=== PATIENT | male | born 1960 | race Caucasian/White ===

== ENCOUNTER 2019-08-27 12:28 | Inpatient (IN) | payer BC, OTHER ==
[2019-08-27 12:47] LABS: ABSOLUTE BASOPHILS # (AUTO) 0.1 10^3/uL (0.0-0.2); ABSOLUTE EOSINOPHILS # (AUTO) 0.4 10^3/uL (0.0-0.6); ABSOLUTE LYMPHOCYTES (AUTO) 2.9 10^3/uL (0.5-4.7); ABSOLUTE NEUT (AUTO) 6.8 10^3/uL (1.7-8.2); BASOPHILS % (AUTO) 0.9 % (0-2); EOSINOPHILS % (AUTO) 3.9 % (0-6); HEMATOCRIT 53.8 % (37.9-51.0); HEMOGLOBIN 17.9 g/dL (13.5-17.0); LYMPHOCYTES % (AUTO) 25.6 % (13-45); MEAN CORPUSCULAR HEMOGLOBIN 32.2 pg (27.0-33.4); MEAN CORPUSCULAR HGB CONC 33.3 g/dL (32.0-36.0); MEAN CORPUSCULAR VOLUME 97 fl (80-97); MONOCYTES % (AUTO) 9.1 % (3-13); PLATELET COUNT 197 10^3/uL (150-450); RED BLOOD COUNT 5.56 10^6/uL (4.35-5.55); RED CELL DISTRIBUTION WIDTH 14.9 % (11.5-14.0); SEGMENTED NEUTROPHILS % (AUTO) 60.5 % (42-78); TOTAL CELLS COUNTED % (AUTO) 100 %; WHITE BLOOD COUNT 11.2 10^3/uL (4.0-10.5)
[2019-08-27 13:07] LABS: ALBUMIN 4.4 g/dL (3.5-5.0); ALKALINE PHOSPHATASE 62 U/L (38-126); ANION GAP 10 (5-19); ASPARTATE AMINO TRANSFERASE 30 U/L (17-59); BILIRUBIN,DIRECT 0.1 mg/dL (0.0-0.4); BILIRUBIN,TOTAL 0.4 mg/dL (0.2-1.3); BLOOD UREA NITROGEN 22 mg/dL (7-20); CALCIUM 9.2 mg/dL (8.4-10.2); CARBON DIOXIDE 28 mmol/L (22-30); CHLORIDE 103 mmol/L (98-107); CREATINE KINASE 173 U/L (55-170); GLUCOSE 103 mg/dL (75-110); POTASSIUM 4.8 mmol/L (3.6-5.0)
--- NOTE | 2019-08-27 13:21 | RADIOLOGY REPORT (SQ) ---
EXAM DESCRIPTION: CHEST 2 VIEWS COMPLETED DATE/TIME: 08/27/2019 1:08 pm REASON FOR STUDY: SOB COMPARISON: None. EXAM PARAMETERS: NUMBER OF VIEWS: two views TECHNIQUE: Digital Frontal and Lateral radiographic views of the chest acquired. RADIATION DOSE: NA LIMITATIONS: none FINDINGS: LUNGS AND PLEURA: No opacities, masses or pneumothorax. No pleural effusion. MEDIASTINUM AND HILAR STRUCTURES: No masses or contour abnormalities. HEART AND VASCULAR STRUCTURES: Heart normal size. No evidence for failure. BONES: Old healed left lateral 5th rib fracture HARDWARE: None in the chest. OTHER: No other significant finding. IMPRESSION: NO ACUTE RADIOGRAPHIC FINDING IN THE CHEST. TECHNICAL DOCUMENTATION: JOB ID: [id number] [employer]- All Rights Reserved Reading location - IP/workstation name: [id number]
[2019-08-27] MEDS ORDERED: ALBUTEROL SULFATE 0.083% NEB 2.5 MG/3 ML AMPUL NEB ONE ×2 (14:01→14:10)
[2019-08-27] MEDS ORDERED: IPRATROPIUM/ALBUTEROL 0.5-2.5 MG/3 ML AMPUL NEB ONE ×2 (14:01→14:10)
--- NOTE | 2019-08-27 14:12 | ER Document Report ---
ED General - General Chief Complaint: Respiratory Distress Stated Complaint: BREATHING DIFFICULTY Time Seen by Provider: 08/27/19 13:12 Primary Care Provider: DARIAN DOMINGUEZ PA [Primary Care Provider] - Follow up as needed Notes: 59-year-old male presents emergency department stating that he was diagnosed with COPD/bronchitis approximately 1 month ago but he has been feeling progressively worse since then. Patient admits increasing cough that is productive but states that the mucus production has decreased, it is clear and brown. States that he has had to sleep sitting up, denies any fevers but admits sweats. States he started taking his 's cough medication in the form of codeine to decrease his cough a few days ago. He has been using 2 different inhalers, one which is a LABA combination inhaler and the other of which is albuterol, he is not certain if either of them are helping. Patient was previ ously on a steroid several weeks ago but has not taken it recently. 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 TRAVEL OUTSIDE OF THE [place] IN LAST 30 DAYS: No - Related Data Allergies/Adverse Reactions: No Known Allergies Allergy (Unverified 08/27/19 12:50) Home Medications: virtussin 5-10ml q4-6h. benicar 40mg qd. albuterol. stiolto Past Medical History - General Information source: Patient - Social History Smoking Status: Current Every Day Smoker Frequency of alcohol use: None Drug Abuse: Marijuana Family History: Reviewed & Not Pertinent Patient has suicidal ideation: No Patient has homicidal ideation: No Review of Systems - Review of Systems Constitutional: See HPI, Chills. denies: Fever EENT: No symptoms reported Cardiovascular: No symptoms reported Respiratory: See HPI -: Yes All other systems reviewed and negative Physical Exam - Vital signs Vitals: Resp BP Pulse Ox 31 H 187/103 H 93 08/27/19 12:32 08/27/19 12:32 08/27/19 12:32 Interpretation: Hypertensive, Tachypneic - Notes Notes: GENERAL: Alert, interacts well. No acute distress. HEAD: Normocephalic, atraumatic EYES: Pupils equal, round and reactive to light, extraocular movements intact. ENT: Oral mucosa moist, tongue midline. NECK: Full range of motion, supple, trachea midline. LUNGS: Diffuse expiratory wheezing, becomes quite red in the face while coughing and appears short of breath, on 2 L via nasal cannula and his oxygen saturation is 93% while sitting. Tachypnea, using some accessory muscles of respiration. HEART: Tachycardic rate and regular rhythm, no murmurs, gallops, rubs. ABDOMEN: Soft, nontender, nondistended, bowel sounds present in all 4 quadrants. EXTREMITIES: Moves all 4 extremities spontaneously, no edema, radial and dorsalis pedis pulses 2/4 bilaterally. No cyanosis. NEUROLOGICAL: Alert and oriented x3, normal speech, biceps and patellar DTRs 2+ bilaterally. PSYCH: Normal mood, normal affect. SKIN: Warm, Dry, normal turgor, no rashes or lesions noted. Course - Re-evaluation Re-evalutation: 08/27/19 14:46 CBC looks like is probably hemoconcentrated, white blood cell count is slightly elevated 11.2, hemoglobin is elevated 17.9, platelets normal, no shift, CMP shows elevated BUN at 22, elevated CK at 173, otherwise unremarkable, troponin negative, chest x-ray shows no acute process, EKG is nonischemic. Patient was given 5 mg of albuterol and 1 DuoNeb breathing treatment, patient continues to wheeze just with as badly as before, EMS already gave him 1 albuterol breathing treatment and also gave him 125 mg of Solu-Medrol. Patient remains on 1 L of oxygen via nasal cannula here as when EMS came to his house he was 87 to 88% on room air. Patient appears to be having an acute exacerbation of COPD. I will discuss him with the hospitalist for possible admission. 08/27/19 14:[address] Blunt who accepted him for admission to the [facility]. - Vital Signs Vital signs: Temp Pulse Resp BP Pulse Ox 98 F 24 H 156/97 H 94 08/27/19 12:42 08/27/19 14:01 08/27/19 14:01 08/27/19 14:01 - Laboratory Result Diagrams: 08/27/19 12:31 08/27/19 12:31 Laboratory results interpreted by me: 08/27/19 08/27/19 12:31 12:31 WBC 11.2 H RBC 5.56 H Hgb 17.9 H Hct 53.8 H RDW 14.9 H BUN 22 H Creatine Kinase 173 H - EKG Interpretation by Me Additional EKG results interpreted by me: 08/27/19 14:47 EKG shows sinus tachycardia at a rate of 121, normal axis, normal intervals, no ST segment elevations or depressions, there is of rapid R wave progression, no T wave inversions per my interpretation. Discharge - Discharge Clinical Impression: Chronic obstructive pulmonary disease with (acute) exacerbation Condition: Fair Disposition: ADMITTED INPATIENT Admitting Provider: Jose Raul (Hospitalist) Unit Admitted: IMCU Referrals: DARIAN DOMINGUEZ PA [Primary Care Provider] - Follow up as needed
[2019-08-27] MEDS ORDERED: MAGNESIUM HYDROXIDE SUSP 30 ML UDCUP PO PRN (17:11)
[2019-08-27] MEDS ORDERED: LEVALBUTEROL HCL NEB 1.25 MG/3 ML AMPUL NEB PRN (17:11)
[2019-08-27] MEDS ORDERED: ONDANSETRON 4 MG TAB.RAPDIS PO PRN (17:11)
[2019-08-27] MEDS ORDERED: MAG HYDROX/AL HYDROX/SIMETH SUSP 30 ML UDCUP PO PRN (17:11)
[2019-08-27] MEDS ORDERED: ACETAMINOPHEN 325 MG TABLET PO PRN (17:11)
[2019-08-27] MEDS ORDERED: IPRATROPIUM BROMIDE 0.02% NEB 0.5 MG/2.5 ML AMPUL NEB PRN (17:25)
[2019-08-27] MEDS ORDERED: GUAIFENESIN/CODEINE PHOS 100-10 MG/ 5 ML UDC PO PRN (17:40)
[2019-08-27] MEDS ORDERED: PHARMACY COMMUNICATION ORDER MC NR (18:00)
[2019-08-27] MEDS ORDERED: NICOTINE 14 MG/24 HR PATCH.TD24 TD PRN (18:04)
--- NOTE | 2019-08-27 18:14 | PDOC H&P ---
History of Present Illness Admission Date/PCP: 08/27/19 15:01 TASAH SORIA Patient complains of: Shortness of breath History of Present Illness: DHAVAL MORRISON is a 59 year old male who states that he has been coughing for several weeks. He states that he occasionally brings up clear or brown sputum. He denies fever or chills. He states that he does get hot on occasion and his friends joked that he is going through mail menopause. He said that it is brie f. He feels hot and there is some diaphoresis but it resolves quickly. He has noticed that he has been getting more short of breath. 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 He does not use oxygen at home. He was getting so short of breath that he finally called EMS. At the scene his oxygen saturation on room air was in the 80s. He was quite wheezy. He was given 125 mg of Solu- Medrol IV as well as nebulizer treatment. He was placed on oxygen. His chest x-ray is negative. There is some confusion about TB exposure. The patient states that his promotions assistant told him that there was a particular test that shows that he has been exposed to TB. He was started on a medication. He cannot quite remember the name but he thinks it began with an R. This could be rifampin. He then went to his primary care provider who said he did not need medicine. He followed up with the pulmonary doctor, I believe, and was told to go back on the medicine. His primary care provider again told him to go off the medicine and that a B complex would be as effective. I am going to request old records. In addition he was seeing a oracle fusion middleware developer. He did get a CT of his chest several weeks ago in [place]. He was at [place] because he had a syncopal episode while coughing. On presentation to the emergency department he was extremely wheezy. He exhibited significant increased work of breathing. His oxygen supplementation was continued. Chest x-ray did not show any infiltrates. There was nothing on the x-ray to suggest a mycobacterial lesion. Regardless, he will be in a negative pressure room. He does not have an elevated white blood cell count. He does have polycythemia and this is likely secondary to smoking. He was a 2 pack-a-day smoker but now has not had a cigarette for 4 days. The patient was referred to the hospitalist service for acute on chronic respiratory failure with hypoxia as well as acute exacerbation of COPD with bronchitis. Past Medical History Cardiac Medical History: Denies: Congestive Heart Failure, Coronary Artery Disease Pulmonary Medical History: Reports: Bronchitis, Chronic Obstructive Pulmonary D isease (COPD) EENT Medical History: Reports: Nose - Possible chronic sinusitis Neurological Medical History: Denies: Hemorrhagic CVA, Ischemic CVA Endocrine Medical History: Denies: Diabetes Mellitus Type 2 Renal/ Medical History: Denies: Chronic Kidney Disease, Nephrolithiasis Malignancy Medical History: Reports: None GI Medical History: Denies: Cirrhosis, Diverticulitis, Gastroesophageal Reflux Disease, Hiatal Hernia Musculoskeltal Medical History: Reports: Arthritis - Currently seeing a promotions assistant. Unsure of the exact type of arthritis. Skin Medical History: Reports: None Psychiatric Medical History: Reports: Alcohol Dependency, Substance Abuse, Tob acco Dependency Traumatic Medical History: Reports: None Hematology: Reports: None Infectious Medical History: Reports: Other Infectious History Note: Cat scratch fever Past Surgical History Past Surgical History: Reports: Other - Right neck lymph node biopsies Social History Information Source: Patient Lives with: Spouse/Significant other Smoking Status: Former Smoker - Patient was smoking 2 packs/day. 4 days ago he quit cold turkey. Cigarettes Packs Per Day: 2 Electronic Cigarette use?: No Frequency of Alcohol Use: None - History of alcoholism Hx Recreational Drug Use: Yes Drugs: Marijuana - Occasional use Hx Prescription Drug Abuse: No Past Social History Note: Lives with girlfriend. 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 He has 2 sons. - Advance Directive Resuscitation Status: Full Code Family History Family History: CAD, Malignancy Parental Family History Reviewed: Yes Children Family History Reviewed: Yes Sibling(s) Family History Reviewed.: Yes Medication/Allergy Home Medications: Albuterol Sulfate [Proair Hfa Inhalation Aerosol 8.5 gm Mdi] 200 puff IH DAILYP PRN 08/27/19 Codeine Phosphate/Guaifenesin [Virtussin AC Liquid] 5 - 10 ml PO Q4HP PRN 08/27/19 Olmesartan Medoxomil [Benicar] 40 mg PO DAILY 08/27/19 Tiotropium Br/Olodaterol HCl [Stiolto Respimat Inhal [place]] 8 gm IH QAM 08/27/19 Allergies/Adverse Reactions: No Known Allergies Allergy (Unverified 08/27/19 12:50) Review of Systems Constitutional: PRESENT: as per HPI, weight gain - In the past he cut out all carbs and starches. He states that he lost approximately 17 pounds. He had an episode where he collapsed. People blamed it on his diet. He stopped dieting and he has gained back all of the weight. He is also intermittently on prednisone.. ABSENT: chills, fever(s), night sweats Eyes: ABSENT: visual disturbances Ears: ABSENT: hearing changes Nose, Mouth, and Throat: PRESENT: other. ABSENT: headache(s) - Cough, mouth pain Cardiovascular: PRESENT: dyspnea on exertion. ABSENT: chest pain, palpitations Respiratory: PRESENT: cough, dyspnea, sputum - Clear to brown Gastrointestinal: ABSENT: abdominal pain, coffee ground emesis, constipation, diarrhea, heartburn, nausea, vomiting Genitourinary: ABSENT: difficulty urinating, dysuria, hematuria Musculoskeletal: PRESENT: other - He reports sporadic severe cramping Integumentary: ABSENT: erythema, lesions, pruritus, rash Neurological: ABSENT: abnormal movements, abnormal speech, confusion, memory loss, tremor(s), vertigo Psychiatric: ABSENT: anxiety, depression, hallucinations Endocrine: ABSENT: cold intolerance, heat intolerance, polydipsia, polyphagia Hematologic/Lymphatic: ABSENT: easy bleeding, easy bruising, lymphadenopathy Physical Exam Vital Signs: Temp Pulse Resp BP Pulse Ox 98 F 30 H 161/81 H 93 08/27/19 12:42 08/27/19 17:01 08/27/19 17:01 08/27/19 17:01 Intake & Output 08/26/19 08/27/19 08/28/19 06:59 06:59 06:59 Weight 104.326 kg General appearance: PRESENT: cooperative, well-developed, other - 59-year-old patient resting in bed with nasal cannula in place. He is tachypneic with moderate distress. Head exam: PRESENT: atraumatic, normocephalic Eye exam: PRESENT: conjunctiva pink, EOMI. ABSENT: scleral icterus Ear exam: PRESENT: normal external ear exam. ABSENT: bleeding, drainage Mouth exam: PRESENT: dry mucosa, tongue midline Neck exam: PRESENT: full ROM. ABSENT: carotid bruit, lymphadenopathy, tracheostomy Respiratory exam: PRESENT: prolonged expiratory phas, symmetrical, tachypnea, wheezes - Scattered inspiratory and expiratory wheezes bilaterally. ABSENT: accessory muscle use, rales, rhonchi Cardiovascular exam: PRESENT: +S1, +S2, tachycardia Pulses: PRESENT: normal radial pulses, normal dorsalis pedis pul GI/Abdominal exam: PRESENT: distended - Protuberant abdomen, firm, normal bowel sounds. ABSENT: ascites, guarding, rebound, tenderness Rectal exam: PRESENT: deferred Gentrourinary exam: ABSENT: indwelling catheter Extremities exam: PRESENT: full ROM, +1 edema - Lower extremities Musculoskeletal exam: PRESENT: ambulatory, full ROM. ABSENT: deformity Neurological exam: PRESENT: alert, awake, oriented to person, oriented to place, oriented to time, oriented to situation, CN II-XII grossly intact Psychiatric exam: PRESENT: anxious, appropriate affect. ABSENT: agitated Focused psych exam: ABSENT: delusional, restlessness Skin exam: PRESENT: dry, normal color, warm. ABSENT: rash, vesicles Results Laboratory Results: 08/27/19 12:31 08/27/19 12:31 08/27/19 08/27/19 12:31 12:31 WBC 11.2 H RBC 5.56 H Hgb 17.9 H Hct 53.8 H MCV 97 MCH 32.2 MCHC 33.3 RDW 14.9 H Plt Count 197 Seg Neutrophils % 60.5 Sodium 140.8 Potassium 4.8 Chloride 103 Carbon Dioxide 28 Anion Gap 10 BUN 22 H Creatinine 0.93 Est GFR ( Amer) > 60 Glucose 103 Calcium 9.2 Total Bilirubin 0.4 AST 30 Alkaline Phosphatase 62 Total Protein 8.0 Albumin 4.4 08/27/19 08/27/19 12:31 12:31 Creatine Kinase 173 H Troponin I < 0.012 Impressions: Chest X-Ray 08/27/19 12:34 IMPRESSION: NO ACUTE RADIOGRAPHIC FINDING IN THE CHEST. Assessment and Plan - Diagnosis (1) Acute and chronic respiratory failure with hypoxia Is this a current diagnosis for this admission?: Yes Plan: 08/27/2019-respiratory failure secondary to COPD exacerbation with bronchitis. The patient was recently diagnosed with COPD with bronchitis. Over the last sev eral weeks he has been experiencing a productive cough and worsening shortness of breath. Today he could hardly breathe and called rescue. In the field he had low oxygen saturation requiring oxygen supplementation. He had increased work of breathing. He received IV steroids and nebulizer treatment in the field and nebulizer treatments in the emergency department. We will continue to supplement his oxygen and start him on an aggressive regimen of nebulizers and steroids. (2) Chronic obstructive pulmonary disease with (acute) exacerbation Is this a current diagnosis for this admission?: Yes Plan: 08/27/2019-the patient is on an inhaler at home. He reports that his doctor will have him take prednisone on occasion. He has been on it recently. I have ordered scheduled and as needed nebulizers with Xopenex and ipratropium as well as scheduled Pulmicort inhalers. He will also receive IV steroids and I placed him on a azithromycin for bronchitis with COPD. (3) Sinus tachycardia Is this a current diagnosis for this admission?: Yes Plan: The patient is quite tachycardic. Some of this I believe is due to nebulizers. I will use Xopenex to decrease beta agonist effect. In addition I will try and avoid beta blockers as they could worsen his shortness of breath. I have elected to start low-dose diltiazem and monitor the patient on telemetry. (4) Hypertension Qualifiers: Hypertension type: essential hypertension Qualified Code(s): I10 - Essential (primary) hypertension Is this a current diagnosis for this admission?: Yes Plan: 08/27/2019-the patient is normally on 40 mg of Benicar. This is the maximum dose. I will therefore put him on 100 mg of losartan and monitor his blood pressure. The patient also states that he has been put on cholesterol medicine but he does not take it. Because this admission is specifically for an exacerbation of COPD I will defer to the primary care provider regarding statin therapy. If isolated systolic pressure continues I will add diuretic therapy. (5) Polycythemia secondary to smoking Is this a current diagnosis for this admission?: Yes Plan: 08/27/2019-the patient was a 2 pack-a-day smoker up until the last few weeks. He weaned himself down and has not had a cigarette for the last 4 days. We will monitor his hemoglobin and hematocrit. He does not need phlebotomy at this point. That will always be an option. (6) Weight gain Is this a current diagnosis for this admission?: Yes Plan: 08/27/2019-the patient states that he has been weight. It is likely due to the prednisone as well as completely going off his diet. Instead of moderating the carbs and starches he went back to full consumption. We reviewed the health ri sks and I strongly encouraged moderate dieting for long-term weight loss. I will check thyroid function studies. (7) Localized edema Is this a current diagnosis for this admission?: Yes Plan: The patient has 1+ pitting edema in his lower extremities. Because his BUN is slightly elevated I will give him IV fluids. If his edema gets worse and his blood pressure can tolerate it I will add diuretic therapy. (8) Muscle cramps Is this a current diagnosis for this admission?: Yes Plan: 08/27/2019-the patient reports that he has been having muscle cramps. Sometimes they are severe. On first review there are no electrolyte abnormalities. We will monitor the patient closely. If his cramping continues this will merit further work-up. - Plan Summary Summary: 08/27/2019-there is question about TB exposure. His brought his medications at home. I am going to request records from his promotions assistant (who told him he needed to be on medication for possible TB exposure) as well as the hospital records from [place] as he was seen in the emergency department several weeks ago. He will stay in negative pressure isolation. I have ordered a QuantiFERON gold study as well as a PPD and sputum for culture and AFB. If pulmonology is available tomorrow I will obtain a consult. - Time Time Spent with patient: 35 or more minutes Smoking Cessation Education: 3 to 10 minutes Medications reviewed and adjusted accordingly: Yes Anticipated discharge: Home - Inpatient Certification Based on my medical assessment, after consideration of the patient's comorbidities, presenting symptoms, or acuity I expect that the services needed warrant INPATIENT care.: Yes I certify that my determination is in accordance with my understanding of Medicare's requirements for reasonable and necessary INPATIENT services [42 CFR 412.3e].: Yes Medical Necessity: Failure to Improve With Outpatient Therapy, Need For IV Fluids, Need For Continuous Telemetry Monitoring, Need for Nebulizer Therapy and Monitoring of Response, Need for IV Antibiotics, Risk of Diagnosis Which Will Require Inpatient Eval/Care/Monitoring Post Hospital Care: D/C [employer]s And Shoes Supervisor Documentation
[2019-08-27] MEDS ORDERED: IBUPROFEN 400 MG TABLET PO PRN (18:21)
[2019-08-27] MEDS ORDERED: TUBERCULIN,PURIF.PROT.DERIV. 5 TU/0.1 ML TEST 1 ML VIAL ID ONE ×2 (19:00→19:31)
[2019-08-27] MEDS: DOCUSATE SODIUM 100 MG CAPSULE PO SCH (19:06)
[2019-08-27] MEDS: DILTIAZEM HCL 30 MG TABLET PO SCH ×2 (19:06→23:41)
[2019-08-27] MEDS: IPRATROPIUM BROMIDE 0.02% NEB 0.5 MG/2.5 ML AMPUL NEB SCH (20:30)
[2019-08-27] MEDS: LEVALBUTEROL HCL NEB 1.25 MG/3 ML AMPUL NEB SCH (20:30)
[2019-08-27] MEDS: GUAIFENESIN 600 MG TABLET.SA PO SCH (21:24)
[2019-08-27] MEDS: METHYLPREDNISOLONE INJ 40 MG/1 ML SDV IV SCH (21:24)
[2019-08-27] MEDS: NORMAL SALINE 1000 ML 1,000 ML IV PRN (22:00)
[2019-08-27] MEDS ORDERED: IBUPROFEN 400 MG TABLET ONE (23:30)
--- NOTE | 2019-08-27 23:35 | EKG REPORT ---
SEVERITY:- OTHERWISE NORMAL ECG - SINUS TACHYCARDIA : Confirmed by: Serene Jimenes 27-Aug-2019 23:34:27
[2019-08-28] MEDS: IPRATROPIUM BROMIDE 0.02% NEB 0.5 MG/2.5 ML AMPUL NEB SCH ×4 (02:34→21:12)
[2019-08-28] MEDS: LEVALBUTEROL HCL NEB 1.25 MG/3 ML AMPUL NEB SCH ×4 (02:41→21:13)
[2019-08-28] MEDS: PANTOPRAZOLE SODIUM 40 MG TABLET.DR PO SCH (05:30)
[2019-08-28] MEDS: METHYLPREDNISOLONE INJ 40 MG/1 ML SDV IV SCH ×3 (05:30→21:02)
[2019-08-28] MEDS: DILTIAZEM HCL 30 MG TABLET PO SCH ×3 (05:31→17:39)
[2019-08-28 06:28] LABS: ABSOLUTE BASOPHILS # (AUTO) 0.1 10^3/uL (0.0-0.2); ABSOLUTE LYMPHOCYTES (AUTO) 1.5 10^3/uL (0.5-4.7); ABSOLUTE MONOCYTES (AUTO) 0.6 10^3/uL (0.1-1.4); ABSOLUTE NEUT (AUTO) 10.4 10^3/uL (1.7-8.2); BASOPHILS % (AUTO) 0.4 % (0-2); EOSINOPHILS % (AUTO) 0.1 % (0-6); HEMATOCRIT 47.7 % (37.9-51.0); HEMOGLOBIN 16.1 g/dL (13.5-17.0); LYMPHOCYTES % (AUTO) 11.9 % (13-45); MEAN CORPUSCULAR HEMOGLOBIN 32.7 pg (27.0-33.4); MEAN CORPUSCULAR HGB CONC 33.8 g/dL (32.0-36.0); MEAN CORPUSCULAR VOLUME 97 fl (80-97); MONOCYTES % (AUTO) 4.9 % (3-13); PLATELET COUNT 191 10^3/uL (150-450); RED BLOOD COUNT 4.93 10^6/uL (4.35-5.55); RED CELL DISTRIBUTION WIDTH 14.7 % (11.5-14.0); SEGMENTED NEUTROPHILS % (AUTO) 82.7 % (42-78); TOTAL CELLS COUNTED % (AUTO) 100 %; WHITE BLOOD COUNT 12.6 10^3/uL (4.0-10.5)
[2019-08-28 06:41] LABS: ANION GAP 8 (5-19); BLOOD UREA NITROGEN 22 mg/dL (7-20); CALCIUM 8.8 mg/dL (8.4-10.2); CARBON DIOXIDE 28 mmol/L (22-30); CHLORIDE 101 mmol/L (98-107); GLUCOSE 141 mg/dL (75-110); PHOSPHORUS 3.3 mg/dL (2.5-4.5); POTASSIUM 4.8 mmol/L (3.6-5.0)
[2019-08-28 06:57] LABS: ARTERIAL BLOOD BASE EXCESS -0.2 mmol/L; ARTERIAL BLOOD H2CO3 1.27 mmol/L (1.05-1.35); ARTERIAL BLOOD HCO3 24.9 mmol/L (20-24); ARTERIAL BLOOD O2 SATURATION 93.1 % (94-98); ARTERIAL BLOOD PCO2 42.1 mmHg (35-45); ARTERIAL BLOOD PH 7.39 (7.35-7.45); ARTERIAL BLOOD PO2 66.7 mmHg (80-100); ARTERIAL BLOOD TOTAL CO2 26.2 mmol/L (23-27)
[2019-08-28 07:00] LABS: FREE T3 3.6 pg/mL (2.77-5.27); FREE T4 (FREE THYROXINE) 0.79 ng/dL (0.78-2.19)
[2019-08-28 07:14] LABS: THYROID STIMULATING HORMONE 0.33 uIU/mL (0.47-4.68)
[2019-08-28 07:47] LABS: ARTERIAL BLOOD FIO2 2 L
[2019-08-28] MEDS: NORMAL SALINE 1000 ML 1,000 ML IV PRN (09:00)
[2019-08-28] MEDS ORDERED: AZITHROMYCIN 500 MG in DEXTROSE 5%-WATER 250 ML IV SCH (10:00)
[2019-08-28] MEDS: LOSARTAN POTASSIUM 50 MG TABLET PO SCH (10:48)
[2019-08-28] MEDS: GUAIFENESIN 600 MG TABLET.SA PO SCH ×2 (10:48→21:02)
[2019-08-28] MEDS: DOCUSATE SODIUM 100 MG CAPSULE PO SCH ×2 (10:48→17:35)
[2019-08-28] MEDS: MULTIVITAMIN TABLET PO SCH (10:49)
[2019-08-28] MEDS: ENOXAPARIN SODIUM INJ 40 MG/0.4 ML DISP.SYRIN SUBCUT SCH (10:49)
--- NOTE | 2019-08-28 15:42 | PDOC PROGRESS REPORT ---
Subjective Progress Note for:: 08/28/19 Subjective:: Still with very bad cough. The patient reports that he has been exposed to MRSA as well. Records have been sent from previous facilities and I will review. Reason For Visit: CHRONIC OBSTRUCTIVE PULMONARY DISEASE WITH ACUTE Physical Exam Vital Signs: Temp Pulse Resp BP Pulse Ox 97.8 F 113 H 18 137/55 H 95 08/28/19 12:03 08/28/19 14:00 08/28/19 13:49 08/28/19 12:03 08/28/19 13:49 Intake & Output 08/27/19 08/28/19 08/29/19 06:59 06:59 06:59 Intake Total 2200 730 Output Total 0 Balance 2200 730 Weight 104.4 kg General appearance: PRESENT: cooperative, mild distress - Patient is in mild to moderate distress with coughing fits., well-developed Head exam: PRESENT: atraumatic, normocephalic Eye exam: PRESENT: conjunctival injection Ear exam: PRESENT: normal external ear exam. ABSENT: bleeding, drainage Respiratory exam: PRESENT: prolonged expiratory phas, tachypnea, wheezes - Wheezes bilaterally, other - Coughing fits Cardiovascular exam: PRESENT: RRR, +S1, +S2, tachycardia GI/Abdominal exam: PRESENT: normal bowel sounds, soft. ABSENT: tenderness Rectal exam: PRESENT: deferred Gentrourinary exam: ABSENT: indwelling catheter Extremities exam: ABSENT: joint swelling, pedal edema Musculoskeletal exam: PRESENT: normal inspection. ABSENT: deformity Neurological exam: PRESENT: alert, awake, oriented to person, oriented to place, oriented to time, oriented to situation, CN II-XII grossly intact Psychiatric exam: PRESENT: appropriate affect. ABSENT: agitated, anxious Focused psych exam: ABSENT: delusional, restlessness Results Laboratory Results: 08/28/19 05:26 08/28/19 05:26 08/28/19 08/28/19 08/28/19 05:26 05:26 05:26 WBC 12.6 H RBC 4.93 Hgb 16.1 Hct 47.7 MCV 97 MCH 32.7 MCHC 33.8 RDW 14.7 H Plt Count 191 Seg Neutrophils % 82.7 H Carbonic Acid HCO3/H2CO3 Ratio ABG pH ABG pCO2 ABG pO2 ABG HCO3 ABG O2 Saturation ABG Base Excess FiO2 Sodium 136.7 L Potassium 4.8 Chloride 101 Carbon Dioxide 28 Anion Gap 8 BUN 22 H Creatinine 0.91 Est GFR ( Amer) > 60 Glucose 141 H Calcium 8.8 Phosphorus 3.3 Magnesium 2.2 TSH 0.33 L Free T4 0.79 Free T3 pg/mL 3.60 08/28/19 06:41 WBC RBC Hgb Hct MCV MCH MCHC RDW Plt Count Seg Neutrophils % Carbonic Acid 1.27 HCO3/H2CO3 Ratio 19:1 ABG pH 7.39 ABG pCO2 42.1 ABG pO2 66.7 L ABG HCO3 24.9 H ABG O2 Saturation 93.1 L ABG Base Excess -0.2 FiO2 2 L Sodium Potassium Chloride Carbon Dioxide Anion Gap BUN Creatinine Est GFR ( Amer) Glucose Calcium Phosphorus Magnesium TSH Free T4 Free T3 pg/mL 08/27/19 08/27/19 12:31 12:31 Creatine Kinase 173 H Troponin I < 0.012 Impressions: Chest X-Ray 08/27/19 12:34 IMPRESSION: NO ACUTE RADIOGRAPHIC FINDING IN THE CHEST. Assessment and Plan - Diagnosis (1) Acute and chronic respiratory failure with hypoxia Is this a current diagnosis for this admission?: Yes Plan: 08/27/2019-respiratory failure secondary to COPD exacerbation with bronchitis. The patient was recently diagnosed with COPD with bronchitis. Over the last several weeks he has been experiencing a productive cough and worsening shortness of breath. Today he could hardly breathe and called rescue. In the field he had low oxygen saturation requiring oxygen supplementation. He had increased work of breathing. He received IV steroids and nebulizer treatment in the field and nebulizer treatments in the emergency department. We will continue to supplement his oxygen and start him on an aggressive regimen of nebulizers and steroids. August 28, 2019-the patient is maintaining reasonable oxygen saturation on 2 L nasal cannula. Continue aggressive pulmonary toilet and antibiotics. (2) Chronic obstructive pulmonary disease with (acute) exacerbation Is this a current diagnosis for this admission?: Yes (3) Sinus tachycardia Is this a current diagnosis for this admission?: Yes Plan: 08/27/2019-the patient is quite tachycardic. Some of this I believe is due to nebulizers. I will use Xopenex to decrease beta agonist effect. In addition I will try and avoid beta blockers as they could worsen his shortness of breath. I have elected to start low-dose diltiazem and monitor the patient on telemetry. August 28, 2019-the tachycardia seems to correlate to his coughing fits. I will increase his diltiazem to 60 mg every 8 hours. (4) Hypertension Qualifiers: Hypertension type: essential hypertension Qualified Code(s): I10 - Essential (primary) hypertension Is this a current diagnosis for this admission?: Yes Plan: 08/27/2019-the patient is normally on 40 mg of Benicar. This is the maximum dose. I will therefore put him on 100 mg of losartan and monitor his blood pressure. The patient also states that he has been put on cholesterol medicine but he does not take it. Because this admission is specifically for an exacerbation of COPD I will defer to the primary care provider regarding statin therapy. If isolated systolic pressure continues I will add diuretic therapy. 08/28/2019-blood pressure still remains slightly high. I will give the diltiazem several days to take effect. Will increase medications if blood pressure is not at reasonable goal. (5) Polycythemia secondary to smoking Is this a current diagnosis for this admission?: Yes Plan: 08/27/2019-the patient was a 2 pack-a-day smoker up until the last few weeks. He weaned himself down and has not had a cigarette for the last 4 days. We will monitor his hemoglobin and hematocrit. He does not need phlebotomy at this point. That will always be an option. 08/28/2019-improved with IV fluids. Smoking cessation encouraged. (6) Weight gain Is this a current diagnosis for this admission?: Yes Plan: 08/27/2019-the patient states that he has been weight. It is likely due to the prednisone as well as completely going off his diet. Instead of moderating the carbs and starches he went back to full consumption. We reviewed the health risks and I strongly encouraged moderate dieting for long-term weight loss. I will check thyroid function studies. 08/28/2019-the patient has been on prednisone several times as noted above. It is difficult to gauge the exact rate of gain. We will continue to monitor his daily weights. (7) Localized edema Is this a current diagnosis for this admission?: Yes Plan: 08/27/2019-the patient has 1+ pitting edema in his lower extremities. Because his BUN is slightly elevated I will give him IV fluids. If his edema gets worse and his blood pressure can tolerate it I will add diuretic therapy. 08/28/2019-edema is better. Likely because his legs have been elevated. Consider diuretic therapy as it will help the blood pressure as well. (8) Muscle cramps Is this a current diagnosis for this admission?: Yes Plan: 08/27/2019-the patient reports that he has been having muscle cramps. Sometimes they are severe. On first review there are no electrolyte abnormalities. We will monitor the patient closely. If his cramping continues this will merit further work-up. 08/28/2019-asymptomatic at this time. Electrolytes normal. (9) Arthritis Is this a current diagnosis for this admission?: Yes Plan: 08/27/2019-the patient did see a crib tender. He cannot tell me what type of arthritis he has. He states that he typically just uses ibuprofen. Symptomatic treatment at this point. 08/28/2019-symptomatic treatment at this time. - Plan Summary Summary: 08/27/2019-there is question about TB exposure. His brought his medications at home. I am going to request records from his crib tender (who told him he needed to be on medication for possible TB exposure) as well as the hospital records from [facility] as he was seen in the emergency department several weeks ago. He will stay in negative pressure isolation. I have ordered a QuantiFERON gold study as well as a PPD and sputum for culture and AFB. If pulmonology is available tomorrow I will obtain a consult. - Time Time Spent with patient: 15-24 minutes Medications reviewed and adjusted accordingly: Yes
[2019-08-28] MEDS ORDERED: VANCOMYCIN HCL 0 MG in DEXTROSE 5%-WATER 250 ML IV NR (15:45)
[2019-08-28] MEDS: PIPERACILLIN SODIUM/TAZOBACTAM 4.5 GM in NORMAL SALINE 100 ML IV SCH ×2 (17:39→23:36)
[2019-08-28] MEDS: VANCOMYCIN HCL 1,500 MG in DEXTROSE 5%-WATER 250 ML IV SCH (18:50)
[2019-08-28] MEDS: ACETYLCYSTEINE 10% NEB 400 MG/4 ML VIAL NEB SCH (21:12)
[2019-08-28] MEDS: DILTIAZEM HCL 60 MG TABLET PO SCH (22:43)
[2019-08-29] MEDS: LEVALBUTEROL HCL NEB 1.25 MG/3 ML AMPUL NEB SCH ×4 (02:06→19:20)
[2019-08-29] MEDS: IPRATROPIUM BROMIDE 0.02% NEB 0.5 MG/2.5 ML AMPUL NEB SCH ×4 (02:06→19:20)
[2019-08-29] MEDS: ACETYLCYSTEINE 10% NEB 400 MG/4 ML VIAL NEB SCH ×4 (02:06→19:21)
[2019-08-29] MEDS: DILTIAZEM HCL 60 MG TABLET PO SCH ×3 (05:06→21:09)
[2019-08-29] MEDS: PIPERACILLIN SODIUM/TAZOBACTAM 4.5 GM in NORMAL SALINE 100 ML IV SCH ×4 (05:06→23:42)
[2019-08-29] MEDS: VANCOMYCIN HCL 1,500 MG in DEXTROSE 5%-WATER 250 ML IV SCH (05:07)
[2019-08-29] MEDS: METHYLPREDNISOLONE INJ 40 MG/1 ML SDV IV SCH ×3 (05:07→21:10)
[2019-08-29] MEDS: PANTOPRAZOLE SODIUM 40 MG TABLET.DR PO SCH (05:11)
[2019-08-29 05:23] LABS: HEMATOCRIT 44.5 % (37.9-51.0); HEMOGLOBIN 15.1 g/dL (13.5-17.0); MEAN CORPUSCULAR HEMOGLOBIN 32.8 pg (27.0-33.4); MEAN CORPUSCULAR HGB CONC 33.9 g/dL (32.0-36.0); MEAN CORPUSCULAR VOLUME 97 fl (80-97); PLATELET COUNT 182 10^3/uL (150-450); RED CELL DISTRIBUTION WIDTH 14.8 % (11.5-14.0); WHITE BLOOD COUNT 17.2 10^3/uL (4.0-10.5)
[2019-08-29 05:48] LABS: ANION GAP 9 (5-19); BLOOD UREA NITROGEN 22 mg/dL (7-20); CALCIUM 8.4 mg/dL (8.4-10.2); CARBON DIOXIDE 27 mmol/L (22-30); CHLORIDE 103 mmol/L (98-107); GLUCOSE 185 mg/dL (75-110); POTASSIUM 4.4 mmol/L (3.6-5.0)
[2019-08-29] MEDS: BUDESONIDE NEB 0.5 MG/2 ML AMPUL NEB SCH ×2 (07:55→19:20)
--- NOTE | 2019-08-29 09:19 | RADIOLOGY REPORT (SQ) ---
EXAM DESCRIPTION: CHEST 2 VIEWS COMPLETED DATE/TIME: 08/29/2019 9:06 am REASON FOR STUDY: pneumonia COMPARISON: 08/27/2019 EXAM PARAMETERS: NUMBER OF VIEWS: two views TECHNIQUE: Digital Frontal and Lateral radiographic views of the chest acquired. RADIATION DOSE: NA LIMITATIONS: none FINDINGS: LUNGS AND PLEURA: No opacities, masses or pneumothorax. No pleural effusion. MEDIASTINUM AND HILAR STRUCTURES: No masses or contour abnormalities. HEART AND VASCULAR STRUCTURES: Heart normal size. No evidence for failure. BONES: No acute findings. HARDWARE: None in the chest. OTHER: No other significant finding. IMPRESSION: NO ACUTE RADIOGRAPHIC FINDING IN THE CHEST. TECHNICAL DOCUMENTATION: JOB ID: [id number] [employer]- All Rights Reserved Reading location - IP/workstation name: [email or web address]
[2019-08-29] MEDS: DOCUSATE SODIUM 100 MG CAPSULE PO SCH ×2 (10:03→17:09)
[2019-08-29] MEDS: GUAIFENESIN 600 MG TABLET.SA PO SCH ×2 (11:12→21:10)
[2019-08-29] MEDS: LOSARTAN POTASSIUM 50 MG TABLET PO SCH (11:12)
[2019-08-29] MEDS: ENOXAPARIN SODIUM INJ 40 MG/0.4 ML DISP.SYRIN SUBCUT SCH (11:13)
[2019-08-29] MEDS: MULTIVITAMIN TABLET PO SCH (11:13)
--- NOTE | 2019-08-29 16:43 | PDOC PROGRESS REPORT ---
Subjective Progress Note for:: 08/29/19 Subjective:: No adverse events overnight. No new complaints. His main concern seems to be that he sees stars and feels like he nearly passes out every time he has a hard coughing spell. He is not had any of those spells today and the spells never happen unless he is having a coughing fit. Someone last night told him that he needs to have an MRI of his brain as well as a carotid ultrasound. I reassured him that this is not the case. He was complaining of some intermittent shortness of breath but he was extremely talkative. He was also on room air this whole time. He did not appear short of breath whatsoever. Reason For Visit: CHRONIC OBSTRUCTIVE PULMONARY DISEASE WITH ACUTE Physical Exam Vital Signs: Temp Pulse Resp BP Pulse Ox 97.5 F 103 H 20 150/73 H 93 08/29/19 15:39 08/29/19 15:39 08/29/19 15:39 08/29/19 15:39 08/29/19 15:39 Intake & Output 08/28/19 08/29/19 08/30/19 06:59 06:59 06:59 Intake Total 2200 1900 670 Output Total 0 Balance 2200 1900 670 Weight 104.4 kg 108 kg General appearance: PRESENT: no acute distress, cooperative, disheveled, obese Respiratory exam: PRESENT: clear to auscultation akhil, symmetrical, unlabored. ABSENT: accessory muscle use, chest wall tenderness, crackles, prolonged expiratory phas, rhonchi, tachypnea, wheezes Cardiovascular exam: PRESENT: tachycardia Pulses: PRESENT: normal carotid pulses Vascular exam: PRESENT: normal capillary refill GI/Abdominal exam: PRESENT: normal bowel sounds, soft. ABSENT: distended, guarding, rebound, tenderness Extremities exam: ABSENT: clubbing, pedal edema Musculoskeletal exam: PRESENT: normal inspection. ABSENT: deformity Neurological exam: PRESENT: alert, awake, oriented to person, oriented to place, oriented to situation Psychiatric exam: PRESENT: appropriate affect, normal mood Skin exam: PRESENT: dry, warm Results Laboratory Results: 08/29/19 04:30 08/29/19 04:30 08/29/19 08/29/19 04:30 04:30 WBC 17.2 H RBC 4.60 Hgb 15.1 Hct 44.5 MCV 97 MCH 32.8 MCHC 33.9 RDW 14.8 H Plt Count 182 Sodium 139.3 Potassium 4.4 Chloride 103 Carbon Dioxide 27 Anion Gap 9 BUN 22 H Creatinine 1.02 Est GFR ( Amer) > 60 Glucose 185 H Calcium 8.4 Magnesium 2.4 H 08/27/19 21:30 Sputum Gram Stain - Final 08/27/19 08/27/19 12:31 12:31 Creatine Kinase 173 H Troponin I < 0.012 Impressions: Chest X-Ray 08/29/19 07:00 IMPRESSION: NO ACUTE RADIOGRAPHIC FINDING IN THE CHEST. Assessment and Plan - Diagnosis (1) Acute and chronic respiratory failure with hypoxia Is this a current diagnosis for this admission?: Yes Plan: Resolved (2) Chronic obstructive pulmonary disease with (acute) exacerbation Is this a current diagnosis for this admission?: Yes Plan: Stable on current therapy. He is being ruled out for TB because of a somewhat confusing history. TB quantiFeron is pending. First 2 AFB smears are negative. PPD is negative. I do not think this patient has TB. He wants a pulmonary consultation but I told him that could probably wait until after we have ruled him out for TB. (3) Sinus tachycardia Is this a current diagnosis for this admission?: Yes Plan: Stable just over 100 consistently, patient asymptomatic - Plan Summary Summary: 08/27/2019-there is question about TB exposure. His brought his medications at home. I am going to request records from his product development carpenter (who told him he needed to be on medication for possible TB exposure) as well as the hospital records from [facility] as he was seen in the emergency department several weeks ago. He will stay in negative pressure isolation. I have ordered a QuantiFERON gold study as well as a PPD and sputum for culture and AFB. If pulmonology is available tomorrow I will obtain a consult. - Time Time Spent with patient: 15-24 minutes
[2019-08-30] MEDS: LEVALBUTEROL HCL NEB 1.25 MG/3 ML AMPUL NEB SCH ×4 (02:25→19:42)
[2019-08-30] MEDS: IPRATROPIUM BROMIDE 0.02% NEB 0.5 MG/2.5 ML AMPUL NEB SCH ×4 (02:25→19:44)
[2019-08-30] MEDS: ACETYLCYSTEINE 10% NEB 400 MG/4 ML VIAL NEB SCH ×4 (02:25→19:43)
[2019-08-30] MEDS: PANTOPRAZOLE SODIUM 40 MG TABLET.DR PO SCH (05:07)
[2019-08-30] MEDS: DILTIAZEM HCL 60 MG TABLET PO SCH ×3 (05:07→21:43)
[2019-08-30] MEDS: PIPERACILLIN SODIUM/TAZOBACTAM 4.5 GM in NORMAL SALINE 100 ML IV SCH ×3 (05:07→17:47)
[2019-08-30] MEDS: METHYLPREDNISOLONE INJ 40 MG/1 ML SDV IV SCH ×3 (05:08→21:43)
[2019-08-30] MEDS: BUDESONIDE NEB 0.5 MG/2 ML AMPUL NEB SCH ×2 (08:09→19:43)
--- NOTE | 2019-08-30 10:03 | Progress Note ---
Provider Note Provider Note: [facility] Infect[facility] Disease Telephone Advice Chart reviewed. Patient is a 59-year-old man with history of hypertension and arthritis who was admitted due to worsening shortness of breath. He has been presenting symptoms for over 1 month and was diagnosed with COPD. 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 His symptoms started after that and consist of cough spells with sputum production that can be clear or brown. No fever, chills, sweats, weight loss. He received steroids in the past and inhalers. On 08/22 he visited the ED at [facility] due to syncope. He had a CT scan of the head that was negative for stroke and x ray of the elbow. No other studies were done. he was discharged home form the ED. On 08/27 he was admitted here with COPD exacerbation and placed on airborne isolation until active pulmonary TB is ruled out. He had Quantiferon Gold test that is pending, CXR was negative for any infiltrates or consolidations. Two separate respiratory specimens have been negative for AFB smear. Another respiratory culture with GPC and GNR. He continues with leukocytosis, but he has been on steroids as well. He was at room air and comfortable per notes. He received vancomycin, pip/tazo and azithromycin. No known history of traveling, animals/birds exposure, HIV status, work/environmental/occupational exposure. ID consulted for antibiotic recommendations. Vital Signs: Temp Pulse Resp BP Pulse Ox 97.6 F 89 20 144/78 H 95 08/30/19 03:43 08/30/19 07:00 08/30/19 03:43 08/30/19 03:43 08/30/19 05:30 Intake & Output 08/29/19 08/30/19 08/31/19 06:59 06:59 06:59 Intake Total 1900 1360 Output Total 0 Balance 1900 1360 Weight 108 kg 109.5 kg Weight/Height Weight 109.5 kg Height 5 ft 10 in Laboratories: 08/29/19 04:30 08/29/19 04:30 MCV 97 fl (80-97) 08/29/19 04:30 MCH 32.8 pg (27.0-33.4) 08/29/19 04:30 MCHC 33.9 g/dL (32.0-36.0) 08/29/19 04:30 RDW 14.8 % (11.5-14.0) H 08/29/19 04:30 Seg Neutrophils % 82.7 % (42-78) H 08/28/19 05:26 Carbonic Acid 1.27 mmol/L (1.05-1.35) 08/28/19 06:41 HCO3/H2CO3 Ratio 19:1 08/28/19 06:41 ABG pH 7.39 (7.35-7.45) 08/28/19 06:41 ABG pCO2 42.1 mmHg (35-45) 08/28/19 06:41 ABG pO2 66.7 mmHg (80-100) L 08/28/19 06:41 ABG HCO3 24.9 mmol/L (20-24) H 08/28/19 06:41 ABG O2 Saturation 93.1 % (94-98) L 08/28/19 06:41 ABG Base Excess -0.2 mmol/L 08/28/19 06:41 FiO2 2 L 08/28/19 06:41 Chloride 103 mmol/L (98-107) 08/29/19 04:30 Carbon Dioxide 27 mmol/L (22-30) 08/29/19 04:30 Anion Gap 9 (5-19) 08/29/19 04:30 Est GFR ( Amer) > 60 (>60) 08/29/19 04:30 Glucose 185 mg/dL (75-110) H 08/29/19 04:30 Calcium 8.4 mg/dL (8.4-10.2) 08/29/19 04:30 Phosphorus 3.3 mg/dL (2.5-4.5) 08/28/19 05:26 Magnesium 2.4 mg/dL (1.6-2.3) H 08/29/19 04:30 Total Bilirubin 0.4 mg/dL (0.2-1.3) 08/27/19 12:31 AST 30 U/L (17-59) 08/27/19 12:31 Alkaline Phosphatase 62 U/L (38-126) 08/27/19 12:31 Total Protein 8.0 g/dL (6.3-8.2) 08/27/19 12:31 Albumin 4.4 g/dL (3.5-5.0) 08/27/19 12:31 TSH 0.33 uIU/mL (0.47-4.68) L 08/28/19 05:26 Free T4 0.79 ng/dL (0.78-2.19) 08/28/19 05:26 Free T3 pg/mL 3.60 pg/mL (2.77-5.27) 08/28/19 05:26 08/27/19 21:30 Sputum Gram Stain - Final 08/27/19 08/27/19 12:31 12:31 Creatine Kinase 173 H Troponin I < 0.012 Microbiology: Blood cultures: 08/27/19 NGTD Respiratory Cultures:08/27/19 NGTD AFB smears: Negative x 2 Radiology: Chest X-Ray 08/29/19 07:00 IMPRESSION: NO ACUTE RADIOGRAPHIC FINDING IN THE CHEST. Assessment and Recommendations: Chart reviewed as part of antimicrobial stewardship program to de escalate antibiotic therapy. Patient presenting with COPD exacerbation but concerned about a potential TB exposure and treatment for latent TB with current respiratory symptoms. CXR not suggestive of any infiltrates. Can consider CT scan of the chest to better assess any possible pulmonary process. Quantiferon Gold in process and sputum for AFBs negative x 2. Records from rheumatology and pulmonary would be helpful. He might have another process due to occupational e xposure, viral pnueumonitis (consider influenza test). Consider HIV test as well. Assess risk of PJP if previously on high dose steroids. If symptoms don't improve. he might need a diagnostic bronchoscopy also cardiology evaluation as it might be of cardiac origin. All this can probably be done as outpatient. In terms of antibiotic therapy, no indication for vancomycin, can discontinue. Continue Pip/tazo to complete 5-7 days of antibiotics. Heidi Baig MD [facility] Infectious Disease [phone]
[2019-08-30] MEDS: DOCUSATE SODIUM 100 MG CAPSULE PO SCH ×2 (10:35→17:35)
[2019-08-30] MEDS: MULTIVITAMIN TABLET PO SCH (11:14)
[2019-08-30] MEDS: LOSARTAN POTASSIUM 50 MG TABLET PO SCH (11:14)
[2019-08-30] MEDS: GUAIFENESIN 600 MG TABLET.SA PO SCH ×2 (11:14→21:43)
[2019-08-30] MEDS: ENOXAPARIN SODIUM INJ 40 MG/0.4 ML DISP.SYRIN SUBCUT SCH (11:14)
--- NOTE | 2019-08-30 15:03 | PDOC PROGRESS REPORT ---
Subjective Progress Note for:: 08/30/19 Subjective:: No adverse events overnight. No new complaints. He is not had any more coughing spells. No fevers. Reason For Visit: CHRONIC OBSTRUCTIVE PULMONARY DISEASE WITH ACUTE Physical Exam Vital Signs: Temp Pulse Resp BP Pulse Ox 97.9 F 86 18 153/79 H 94 08/30/19 13:20 08/30/19 14:08 08/30/19 14:08 08/30/19 13:20 08/30/19 14:08 Intake & Output 08/29/19 08/30/19 08/31/19 06:59 06:59 06:59 Intake Total 1900 1360 420 Output Total 0 Balance 1900 1360 420 Weight 108 kg 109.5 kg General appearance: PRESENT: no acute distress, cooperative, disheveled, obese Respiratory exam: PRESENT: clear to auscultation akhil, symmetrical, unlabored. ABSENT: accessory muscle use, chest wall tenderness, crackles, prolonged expiratory phas, rhonchi, tachypnea, wheezes Cardiovascular exam: PRESENT: tachycardia Pulses: PRESENT: normal carotid pulses Vascular exam: PRESENT: normal capillary refill GI/Abdominal exam: PRESENT: normal bowel sounds, soft. ABSENT: distended, guarding, rebound, tenderness Extremities exam: ABSENT: clubbing, pedal edema Musculoskeletal exam: PRESENT: normal inspection. ABSENT: deformity Neurological exam: PRESENT: alert, awake, oriented to person, oriented to place, oriented to situation Psychiatric exam: PRESENT: appropriate affect, normal mood Skin exam: PRESENT: dry, warm Results Laboratory Results: 08/29/19 04:30 08/29/19 04:30 08/27/19 21:30 Sputum Gram Stain - Final 08/27/19 21:30 Sputum Sputum Culture - Final NORMAL JUAN ALBERTO 08/27/19 08/27/19 12:31 12:31 Creatine Kinase 173 H Troponin I < 0.012 Impressions: Chest X-Ray 08/29/19 07:00 IMPRESSION: NO ACUTE RADIOGRAPHIC FINDING IN THE CHEST. Assessment and Plan - Diagnosis (1) Acute and chronic respiratory failure with hypoxia Is this a current diagnosis for this admission?: Yes Plan: Resolved (2) Chronic obstructive pulmonary disease with (acute) exacerbation Is this a current diagnosis for this admission?: Yes Plan: Stable on current therapy. He is being ruled out for TB because of a somewhat confusing history. TB quantiFeron is pending. First 2 AFB smears are negative. PPD is negative. Chest x-ray is clear. I do not think this patient has TB. He wants a pulmonary consultation but I told him that could probably wait until after we have ruled him out for TB. As soon as I can get this third negative AFB smear, and I feel certain that it will be negative, we can get him off airborne precautions and get him out of the hospital. (3) Sinus tachycardia Is this a current diagnosis for this admission?: Yes Plan: Stable just under 100 consistently, patient asymptomatic - Plan Summary Summary: 08/27/2019-there is question about TB exposure. His brought his medications at home. I am going to request records from his granite cutter apprentice (who told him he needed to be on medication for possible TB exposure) as well as the hospital records from [place] as he was seen in the emergency department several weeks ago. He will stay in negative pressure isolation. I have ordered a QuantiFERON gold study as well as a PPD and sputum for culture and AFB. If pulmonology is available tomorrow I will obtain a consult. - Time Time Spent with patient: 15-24 minutes
[2019-08-31] MEDS: IPRATROPIUM BROMIDE 0.02% NEB 0.5 MG/2.5 ML AMPUL NEB SCH ×3 (02:10→14:44)
[2019-08-31] MEDS: LEVALBUTEROL HCL NEB 1.25 MG/3 ML AMPUL NEB SCH ×3 (02:11→14:44)
[2019-08-31] MEDS: ACETYLCYSTEINE 10% NEB 400 MG/4 ML VIAL NEB SCH ×3 (02:11→14:44)
[2019-08-31] MEDS: PANTOPRAZOLE SODIUM 40 MG TABLET.DR PO SCH (05:56)
[2019-08-31] MEDS: DILTIAZEM HCL 60 MG TABLET PO SCH ×2 (05:56→14:19)
[2019-08-31] MEDS: METHYLPREDNISOLONE INJ 40 MG/1 ML SDV IV SCH ×2 (05:56→14:19)
[2019-08-31] MEDS: PIPERACILLIN SODIUM/TAZOBACTAM 4.5 GM in NORMAL SALINE 100 ML IV SCH ×4 (05:57→14:19)
[2019-08-31] MEDS: BUDESONIDE NEB 0.5 MG/2 ML AMPUL NEB SCH (08:45)
[2019-08-31] MEDS: GUAIFENESIN 600 MG TABLET.SA PO SCH (09:46)
[2019-08-31] MEDS: LOSARTAN POTASSIUM 50 MG TABLET PO SCH (09:46)
[2019-08-31] MEDS: ENOXAPARIN SODIUM INJ 40 MG/0.4 ML DISP.SYRIN SUBCUT SCH (09:46)
[2019-08-31] MEDS: MULTIVITAMIN TABLET PO SCH (09:46)
[2019-08-31] MEDS: DOCUSATE SODIUM 100 MG CAPSULE PO SCH (09:47)
[2019-08-31 14:14] VITALS: BP 157/90
--- NOTE | 2019-08-31 17:58 | PDOC DISCHARGE SUMMARY ---
Impression - Admit/DC Date/PCP Admission Date/Primary Care Provider: 08/27/19 15:01 TASHA SORIA Discharge Date: 08/31/19 - Discharge Diagnosis (1) Acute and chronic respiratory failure with hypoxia Is this a current diagnosis for this admission?: Yes (2) Chronic obstructive pulmonary disease with (acute) exacerbation Is this a current diagnosis for this admission?: Yes (3) Sinus tachycardia Is this a current diagnosis for this admission?: Yes - Assessment Summary: 08/27/2019-there is question about TB exposure. His brought his medications at home. I am going to request records from his wound care nurse (who told him he needed to be on medication for possible TB exposure) as well as the hospital records from [place] as he was seen in the emergency department several weeks ago. He will stay in negative pressure isolation. I have ordered a QuantiFERON gold study as well as a PPD and sputum for culture and AFB. If pulmonology is available tomorrow I will obtain a consult. - Additional Information Resuscitation Status: Full Code Discharge Diet: Cardiac Discharge Activity: Balance Activity w/Rest, Slowly Increase Activity Referrals: DARIAN DOMINGUEZ PA [Primary Care Provider] - (4-5 days ) Prescriptions: Prednisone [Deltasone 20 mg Tablet] 40 mg PO DAILY #10 tablet Doxycycline Hyclate 100 mg PO BID #10 capsule Home Medications: Albuterol Sulfate [Proair HFA Inhalation Aerosol 8.5 gm MDI] 2 puff IH DAILYP PRN 08/27/19 Olmesartan Medoxomil [Benicar] 40 mg PO DAILY 08/27/19 Tiotropium Br/Olodaterol HCl [Stiolto Respimat Inhal [place]] 2 inh IH QAM 08/27/19 Doxycycline Hyclate 100 mg PO BID #10 capsule 08/31/19 Prednisone [Deltasone 20 mg Tablet] 40 mg PO DAILY #10 tablet 08/31/19 History of Present Illiness History of Present Illness: DHAVAL MORRISON is a 59 year old male who states that he has been coughing for several weeks. He states that he occasionally brings up clear or brown sputum. He denies fever or chills. He states that he does get hot on occasion and his friends joked that he is going through mail menopause. He said that it is brief. He feels hot and there is some diaphoresis but it resolves quickly. He has noticed that he has been getting more short of breath. 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 He does not use oxygen at home. He was getting so short of breath that he finally called EMS. At the scene his oxygen saturati on on room air was in the 80s. He was quite wheezy. He was given 125 mg of Solu-Medrol IV as well as nebulizer treatment. He was placed on oxygen. His chest x-ray is negative. There is some confusion about TB exposure. The patient states that his wound care nurse told him that there was a particular test that shows that he has been exposed to TB. He was started on a medication. He cannot quite remember the name but he thinks it began with an R. This could be rifampin. He then went to his primary care provider who said he did not need medicine. He followed up with the pulmonary doctor, I believe, and was told to go back on the medicine. His primary care provider again told him to go off the medicine and that a B complex would be as effective. I am going to request old records. In addition he was seeing a principal security architect. He did get a CT of his chest several weeks ago in [place]. He was at [place] because he had a syncopal episode while coughing. On presentation to the emergency department he was extremely wheezy. He exhibited significant increased work of breathing. His oxygen supplementation was continued. Chest x-ray did not show any infiltrates. There was nothing on the x-ray to suggest a mycobacterial lesion. Regardless, he will be in a negative pressure room. He does not have an elevated white blood cell count. He does have polycythemia and this is likely secondary to smoking. He was a 2 pack-a-day smoker but now has not had a cigarette for 4 days. The patient was referred to the hospitalist service for acute on chronic respiratory failure with hypoxia as well as acute exacerbation of COPD with bronchitis. Hospital Course Hospital Course: This patient does not have TB. He had 3- AFB smears on consecutive days, and his PPD was negative. He had nothing on imaging to indicate that he has TB. It is not even known if he is actually been exposed to it in the past. What he did have was a pretty severe COPD exacerbation. He was smoking 2 packs a day. He said that he plans to quit cold turkey because he does not want to get into the type of respiratory distress he was in whenever he came to the hospital. He gets a little short of breath when he ambulates but when he rests his SPO2 comes up above 90% on room air and he is able to talk. He is going to complete a burst of prednisone at home along with a course of doxycycline. I told him to take the weekend off from work and to follow-up with his primary care provider early next week. He said he has an appointment with a principal security architect next week and advised him to keep that appointment. His labs and examination were reassuring and he was discharged home in good condition. Physical Exam Vital Signs: Temp Pulse Resp BP Pulse Ox 97.7 F 88 14 157/90 H 93 08/31/19 17:49 08/31/19 17:49 08/31/19 17:49 08/31/19 12:16 08/31/19 17:49 Intake & Output 08/30/19 08/31/19 09/01/19 06:59 06:59 06:59 Intake Total 1360 975 637 Balance 1360 975 637 Weight 109.5 kg 109.1 kg General appearance: PRESENT: no acute distress, cooperative, disheveled, obese Respiratory exam: PRESENT: clear to auscultation akhil, symmetrical, unlabored. ABSENT: accessory muscle use, chest wall tenderness, crackles, prolonged expiratory phas, rhonchi, tachypnea, wheezes Cardiovascular exam: PRESENT: tachycardia Pulses: PRESENT: normal carotid pulses Vascular exam: PRESENT: normal capillary refill GI/Abdominal exam: PRESENT: normal bowel sounds, soft. ABSENT: distended, guarding, rebound, tenderness Extremities exam: ABSENT: clubbing, pedal edema Musculoskeletal exam: PRESENT: normal inspection. ABSENT: deformity Neurological exam: PRESENT: alert, awake, oriented to person, oriented to place, oriented to situation Psychiatric exam: PRESENT: appropriate affect, normal mood Skin exam: PRESENT: dry, warm Results Laboratory Results: WBC 17.2 10^3/uL (4.0-10.5) H 08/29/19 04:30 RBC 4.60 10^6/uL (4.35-5.55) 08/29/19 04:30 Hgb 15.1 g/dL (13.5-17.0) 08/29/19 04:30 Hct 44.5 % (37.9-51.0) 08/29/19 04:30 MCV 97 fl (80-97) 08/29/19 04:30 MCH 32.8 pg (27.0-33.4) 08/29/19 04:30 MCHC 33.9 g/dL (32.0-36.0) 08/29/19 04:30 RDW 14.8 % (11.5-14.0) H 08/29/19 04:30 Plt Count 182 10^3/uL (150-450) 08/29/19 04:30 Lymph % (Auto) 11.9 % (13-45) L 08/28/19 05:26 Harper % (Auto) 4.9 % (3-13) 08/28/19 05:26 Eos % (Auto) 0.1 % (0-6) 08/28/19 05:26 Baso % (Auto) 0.4 % (0-2) 08/28/19 05:26 Absolute Neuts (auto) 10.4 10^3/uL (1.7-8.2) H 08/28/19 05:26 Absolute Lymphs (auto) 1.5 10^3/uL (0.5-4.7) 08/28/19 05:26 Absolute Monos (auto) 0.6 10^3/uL (0.1-1.4) 08/28/19 05:26 Absolute Eos (auto) 0.0 10^3/uL (0.0-0.6) 08/28/19 05:26 Absolute Basos (auto) 0.1 10^3/uL (0.0-0.2) 08/28/19 05:26 Seg Neutrophils % 82.7 % (42-78) H 08/28/19 05:26 Carbonic Acid 1.27 mmol/L (1.05-1.35) 08/28/19 06:41 HCO3/H2CO3 Ratio 19:1 08/28/19 06:41 ABG pH 7.39 (7.35-7.45) 08/28/19 06:41 ABG pCO2 42.1 mmHg (35-45) 08/28/19 06:41 ABG pO2 66.7 mmHg (80-100) L 08/28/19 06:41 ABG HCO3 24.9 mmol/L (20-24) H 08/28/19 06:41 ABG Total CO2 26.2 mmol/L (23-27) 08/28/19 06:41 ABG O2 Saturation 93.1 % (94-98) L 08/28/19 06:41 ABG Base Excess -0.2 mmol/L 08/28/19 06:41 FiO2 2 L 08/28/19 06:41 Sodium 139.3 mmol/L (137-145) 08/29/19 04:30 Potassium 4.4 mmol/L (3.6-5.0) 08/29/19 04:30 Chloride 103 mmol/L (98-107) 08/29/19 04:30 Carbon Dioxide 27 mmol/L (22-30) 08/29/19 04:30 Anion Gap 9 (5-19) 08/29/19 04:30 BUN 22 mg/dL (7-20) H 08/29/19 04:30 Creatinine 1.02 mg/dL (0.52-1.25) 08/29/19 04:30 Est GFR ( Amer) > 60 (>60) 08/29/19 04:30 Est GFR (MDRD) Non-Af > 60 (>60) 08/29/19 04:30 Glucose 185 mg/dL (75-110) H 08/29/19 04:30 Calcium 8.4 mg/dL (8.4-10.2) 08/29/19 04:30 Phosphorus 3.3 mg/dL (2.5-4.5) 08/28/19 05:26 Magnesium 2.4 mg/dL (1.6-2.3) H 08/29/19 04:30 Total Bilirubin 0.4 mg/dL (0.2-1.3) 08/27/19 12:31 Direct Bilirubin 0.1 mg/dL (0.0-0.4) 08/27/19 12:31 Neonat Total Bilirubin Not Reportable 08/27/19 12:31 Neonat Direct Bilirubin Not Reportable 08/27/19 12:31 Neonat Indirect Bili Not Reportable 08/27/19 12:31 AST 30 U/L (17-59) 08/27/19 12:31 ALT 40 U/L (<50) 08/27/19 12:31 Alkaline Phosphatase 62 U/L (38-126) 08/27/19 12:31 Creatine Kinase 173 U/L (55-170) H 08/27/19 12:31 Troponin I < 0.012 ng/mL 08/27/19 12:31 Total Protein 8.0 g/dL (6.3-8.2) 08/27/19 12:31 Albumin 4.4 g/dL (3.5-5.0) 08/27/19 12:31 TSH 0.33 uIU/mL (0.47-4.68) L 08/28/19 05:26 Free T4 0.79 ng/dL (0.78-2.19) 08/28/19 05:26 Free T3 pg/mL 3.60 pg/mL (2.77-5.27) 08/28/19 05:26 TB Gold In Tube Comment Comment (.) 08/28/19 05:26 TB Test (QFT) Gold Plus Negative (Negative) 08/28/19 05:26 TB (QFT) Incubation 08/28/19 05:26 TB Test (QFT) Mitogen 8.24 IU/mL (.) 08/28/19 05:26 TB Test (QFT) Ag 1 0.08 IU/mL (.) 08/28/19 05:26 TB Test (QFT) Ag 2 0.10 IU/mL (.) 08/28/19 05:26 TB Test TB - Nil 0.01 IU/mL (.) 08/28/19 05:26 AFB Smear NO ACID FAST BACILLI (NO AFB SEEN) 08/31/19 09:29 08/27/19 12:31 Troponin I < 0.012 Impressions: Chest X-Ray 08/27/19 12:34 IMPRESSION: NO ACUTE RADIOGRAPHIC FINDING IN THE CHEST. Chest X-Ray 08/29/19 07:00 IMPRESSION: NO ACUTE RADIOGRAPHIC FINDING IN THE CHEST. Plan Time Spent: Greater than 30 Minutes Stroke Is this a Stroke Patient?: No Acute Heart Failure - Is this a Heart Failure Patient?: No
[2019-08-31] MEDS ORDERED: METHYLPREDNISOLONE INJ 40 MG/1 ML SDV IV ONE (19:00)
== END 2019-08-31 18:43 | disposition home or self-care (01) | DRG 190 ==
LOC: ER 12:28 → EH 15:01 → 3N 18:15
PROVIDERS: ADMIT Hospitalist; ATTEND Hospitalist
DX: J44.1 Chronic obstructive pulmonary disease with (acute) exacerbation (principal); J96.21 Acute and chronic respiratory failure with hypoxia; I10 Essential (primary) hypertension; M19.90 Unspecified osteoarthritis, unspecified site; J40 Bronchitis, not specified as acute or chronic; D75.1 Secondary polycythemia; Z20.1 Contact with and (suspected) exposure to tuberculosis; R00.0 Tachycardia, unspecified; R63.5 Abnormal weight gain; F17.210 Nicotine dependence, cigarettes, uncomplicated; F10.20 Alcohol dependence, uncomplicated; F12.10 Cannabis abuse, uncomplicated; R60.9 Edema, unspecified; R25.2 Cramp and spasm; Z79.51 Long term (current) use of inhaled steroids
CPT/HCPCS: 36415; 36600; 71046; 80048; 80053; 82550; 82803; 83735; 84100; 84439; 84443; 84481; 84484; 85025; 85027; 86480; 87015; 87040; 87070; 87101; 87116; 87205; 87206; 93005; 93010; 94640; 94667; 99291; J0456; J1650; J2543; J2920; J3370; J3490; J7030; J7050; J7060; J7620